=== PATIENT | male | born 1940 | race Caucasian/White ===

== ENCOUNTER → 2023-07-22 12:58 | Outpatient (REF) | payer MEDICARE, OTHER, SELFPAY | LOC: DHVS 12:58 | PROVIDERS: ATTENDING PHYSICIAN Internal Medicine Cardiovascular Disease; FAMILY PHYSICIAN Nurse Practitioner Primary Care | DX: I73.9 Peripheral vascular disease, unspecified (principal) | CPT/HCPCS: 93922 ==

== ENCOUNTER 2023-08-01 19:42 | Inpatient (IN) | payer MEDICARE, OTHER, SELFPAY ==
[2023-08-01 15:29] VITALS: BMI 28.6
[2023-08-01 15:35] VITALS: BP 174/68
--- NOTE | 2023-08-01 15:37 | ED.GENMED ---
History of Present Illness
General
Chief Complaint: Breathing Problem
Time Seen by Provider: 08/01/23 15:42
Travel History
Have you had any contact with someone who has COVID-19?: No
Do you have any symptoms of coronavirus? Fever > 100 degrees, chills, cough, shortness of breath, sore throat, loss of taste or smell, muscle aches, or headache?: No
Past History
Past History
ED Past Medical History: CAD, HTN and Other (BPH)
ED Past Surgical History: Cardiac
Social History
Tobacco: Former smoker
Alcohol: Occasional
Drug: None
Personal:
Living: with family
Employment: Retired
Family History
Family History: Other (Hypertension mother, father CAD)
Course
Orders/Labs/Results
Orders:
Orders
08/01/23 15:35
Electrocardiogram (*1) Urgent
Reason for Study: Other
Other Reason for Exam: Respiratory Distress
Cardiac Monitoring- Treatment ONCE
EKG- Treatment ONCE
IV Insert/Care/Rem.- Treatment PRN
CR Chest - 2 Views Urgent
Comment:
Reason For Exam: respiratory distress
O2 Therapy [RESP] Urgent
Titrate/Wean O2 to maintain O2 sat greater than (%): 93
Special Instructions: TO MAINTAIN CONTINUOUS O2 SATS >/= 93%
Pulse Ox/cont/shift [RESP] Urgent
Quantity: 1
Special Instructions: continuous pulse ox
08/01/23 15:37
Complete Blood Count/With Diff Urgent
Comprehensive Metabolic Panel Urgent
08/01/23 15:57
Electrocardiogram (*1) Urgent
Reason for Study: Shortness of Breath
EKG- Treatment ONCE
COVID-19 Antigen Urgent
Source: Nasal Swab
08/01/23 15:58
Influenza A+B Rapid Molecular Urgent
QUIQUE Source: Nasal Swab
Specimen Description:
Ipratropium/Albuterol Sulfate [Duoneb] 3 ml INH R NOW STA
MethylPREDNISolone PF [Solu-Medrol Pf] 125 mg IV NOW STA
Abnormal Lab Results
08/01/23
15:37
RBC 3.47 L 10^6/uL
(4.70-6.10)
Hgb 8.9 L g/dL
(13.0-18.0)
Hct 27.3 L %
(39.0-52.0)
MCV 78.7 L fL
(80.0-94.0)
MCH 25.6 L pg
(27.0-31.0)
MCHC 32.6 L g/dL
(33.0-37.0)
RDW 16.2 H %
(11.5-14.5)
Plt Count 119 L 10^3/uL
(130-400)
Absolute Lymphs (auto) 0.9 L 10^3/uL
(1.2-3.4)
Lymphocytes % 13.6 L %
(20.5-51.1)
Sodium 133 L mmol/L
(135-145)
BUN 27 H mg/dl
(9-20)
Creatinine 2.3 H mg/dL
(0.7-1.3)
Glucose 195 H mg/dl
(70-99)
08/01/23 15:37
08/01/23 15:37
Vital Signs
Initial and Last Documented VS:
Initial Vital Signs
Temp Pulse Resp Pulse Ox
98.5 F 101 20 94
08/01/23 15:29 08/01/23 15:29 08/01/23 15:29 08/01/23 15:29
Last Documented Vital Signs
Temp Pulse Resp BP Pulse Ox
98.5 F 101 20 174/68 94
08/01/23 15:29 08/01/23 15:29 08/01/23 15:29 08/01/23 15:35 08/01/23 15:29
ED Attending Note
-
Portions of this chart may have been created with voice recognition software.� Occasional wrong word or��sound alike� substitutions may have occurred due to the inherent limitations of voice recognition software.
Discharge Plan
Departure
Prescriptions:
No Action
aspirin 81 MG tablet,delayed release (DR/EC)
81 mg PO DAILY
tamsulosin 0.4 MG capsule
0.4 mg PO HS
bupropion HCl 300 MG tablet extended release 24 hr
300 mg PO DAILY
alprazolam 0.5 MG tablet
0.5 mg PO TIDPRN PRN (Reason: anxiety/sleep)
metoprolol succinate 50 MG tablet extended release 24 hr
50 mg PO DAILY
simvastatin 40 MG tablet
80 mg PO DAILY
albuterol sulfate 1 PUFF HFA aerosol inhaler
2 puff inhalation R Q4HPRN PRN (Reason: sob)
finasteride 5 MG tablet
5 mg PO HS
fluticasone propionate [Flovent HFA] 1 PUFF HFA aerosol inhaler
2 puff inhalation BID
bimatoprost [Lumigan] 1 DROP drops
1 drp RIGHT EYE HS
guaifenesin [Mucus Relief ER] 600 MG tablet extended release 12hr
600 mg PO Q12H
glycopyrrolate-formoterol [Bevespi Aerosphere] 10.7 GM HFA aerosol inhaler
2 puff inhalation BID
Patient Comments:
hydralazine 10 MG tablet
20 mg PO BID Qty: 0
omeprazole 40 MG capsule,delayed release(DR/EC)
40 mg PO DAILY
Referrals:
NONE,* [Family Provider] -
Interventions
Interventions:
*Risk Screen - Suicide Last Done: 08/01/23 15:29
*General Assessment Last Done: 08/01/23 15:29
*Neglect/Abuse Screening Last Done: 08/01/23 15:29
*ED COVID-19 Vaccine History Last Done: 08/01/23 15:29
[2023-08-01 15:51] LABS: % Basophils 0.3 % (0-2); % Eosinophils 1.5 % (0-6); % Immature Granulocytes 0.5 % (0-0.5); % Lymphocytes 13.6 % (20.5-51.1); % Monocytes 9.2 % (1.7-9.3); % Neutrophils 74.9 % (42.2-75.2); Absolute Eosinophils 0.1 10^3/uL (0-0.7); Absolute Lymphocytes 0.9 10^3/uL (1.2-3.4); Absolute Monocytes 0.6 10^3/uL (0.1-0.6); Absolute Neutrophils 4.9 10^3/uL (1.4-6.5); Hematocrit 27.3 % (39.0-52.0); Hemoglobin 8.9 g/dL (13.0-18.0); Mean Corp Hgb Conc. 32.6 g/dL (33.0-37.0); Mean Corpuscular Hgb 25.6 pg (27.0-31.0); Mean Corpuscular Volume 78.7 fL (80.0-94.0); Mean Platelet Volume 10.4 fL (7.4-10.4); Nucleated Red Blood Cells % 0 % (-); Platelet Count 119 10^3/uL (130-400); Red Blood Cell Count 3.47 10^6/uL (4.70-6.10); Red Cell Dist. Width 16.2 % (11.5-14.5); White Blood Cell Count 6.5 10^3/uL (4.8-10.8)
[2023-08-01] MEDS: DUONEB 3 ML INH ×2 (16:07→21:01)
[2023-08-01] MEDS: SOLU-MEDROL PF 125 MG IV (16:07)
[2023-08-01 16:12] LABS: ALT (SGPT) 20 U/L (0-50); AST (SGOT) 23 U/L (17-59); Albumin 3.7 g/dl (3.5-5.0); Alkaline Phosphatase 92 U/L (38-126); Blood Urea Nitrogen 27 mg/dl (9-20); Carbon Dioxide 26 mmol/L (22-30); Chloride 99 mmol/L (98-107); Estimated Creatinine Clearance 21 ml/min; Glucose 195 mg/dl (70-99); Potassium 4.3 mmol/L (3.5-5.1); Sodium 133 mmol/L (135-145); Total Bilirubin 0.8 mg/dl (0.2-1.3); Total Protein 6.7 g/dl (6.3-8.2); eGFR 27.32
--- NOTE | 2023-08-01 16:23 | ED.GENMED ---
History of Present Illness
General
Chief Complaint: Breathing Problem
Source: patient and spouse
Exam Limitations: none
Time Seen by Provider: 08/01/23 15:42
Nursing documentation reviewed up to this point in time: agreed with
Travel History
Have you had any contact with someone who has COVID-19?: No
Do you have any symptoms of coronavirus? Fever > 100 degrees, chills, cough, shortness of breath, sore throat, loss of taste or smell, muscle aches, or headache?: No
History of Present Illness
History of Present Illness:
83-year-old male with past medical history of COPD, PE, CAD status post CABG, hypertension, hyperlipidemia who presents to the emergency room with his and daughter for evaluation of shortness of breath. Patient reports onset of symptoms a week
ago and have been gradually worsening since that time. He reports that over the past 2 to 3 days he has noticed increasing tightness in his chest as well. He says he has had a hacking cough at first productive of brown sputum has progressed to
yellowish-white sputum he says. He says that he has been using his albuterol much more frequently and has not gotten as much relief as usual from his inhaler. Finally came in to be assessed. He did receive a DuoNeb from EMS with some improvement.
He denies any fevers or chills. He has not had any swelling or pain in his legs. Denies any GI issues. Denies any other complaints today.
Past History
Past History
ED Past Medical History: CAD, HTN and Other (BPH)
ED Past Surgical History: Cardiac
Social History
Tobacco: Former smoker
Alcohol: Occasional
Drug: None
Personal:
Living: with family
Employment: Retired
Family History
Family History: Other (Hypertension mother, father CAD)
Review of Systems
Review of Systems
All Other Systems: ROS reviewed and negative except as documented in HPI and ROS
Constitutional: Denies fever or chills
EENT: Denies sore throat or runny nose
Respiratory: Reports cough and trouble breathing; Denies hemoptysis
Cardiac: Reports chest pain (Tightness); Denies palpitations
ABD/GI: Denies abdominal pain, nausea, vomiting or diarrhea
: Denies flank pain
Musculoskeletal: Denies edema, neck pain or back pain
Neurological: Denies headache, weakness or numbness
Phy Exam
Physical Exam
Physical Exam:
General: Awake, alert, oriented x3; no acute distress
Head: Normocephalic, atraumatic
Eyes: Conjunctiva normal, pupils equal round reactive to light bilateral
Throat: Airway intact, handling secretions
Neck: Trachea midline, supple without meningismus
Lungs: Patient has diminished air movement/prolonged expiration throughout all lung alaniz; he has scattered wheezing most pronounced at the left lung base; he has a pulse ox of 94% on room air with a respiratory rate of 18-20
Heart: Regular rate and rhythm, no murmurs, gallops, or rubs appreciated
Abd: Soft, non distended, nontender
Neuro: Cranial nerves grossly intact, speech fluid
Skin: no rash
Extremities: No edema in extremities, equal pulses in all extremities
Scores
Heart Failure Risk
Heart Failure Risk Score: Not Applicable
Heart Score for Chest Pain Patients
STEMI patient?: Not applicable
Withdrawal Assessment of Alcohol
Withdrawal Assessment Completed?: Not applicable
Course
Orders/Labs/Results
Orders:
Orders
08/01/23 15:35
Electrocardiogram (*1) Urgent
Reason for Study: Other
Other Reason for Exam: Respiratory Distress
Cardiac Monitoring- Treatment ONCE
EKG- Treatment ONCE
IV Insert/Care/Rem.- Treatment PRN
CR Chest - 2 Views Urgent
Comment:
Reason For Exam: respiratory distress
O2 Therapy [RESP] Urgent
Titrate/Wean O2 to maintain O2 sat greater than (%): 93
Special Instructions: TO MAINTAIN CONTINUOUS O2 SATS >/= 93%
Pulse Ox/cont/shift [RESP] Urgent
Quantity: 1
Special Instructions: continuous pulse ox
08/01/23 15:37
Complete Blood Count/With Diff Urgent
Comprehensive Metabolic Panel Urgent
08/01/23 15:57
Electrocardiogram (*1) Urgent
Reason for Study: Shortness of Breath
EKG- Treatment ONCE
08/01/23 15:58
Ipratropium/Albuterol Sulfate [Duoneb] 3 ml INH R NOW STA
MethylPREDNISolone PF [Solu-Medrol Pf] 125 mg IV NOW STA
08/01/23 17:17
COVID-19 Antigen Urgent
Source: Nasal Swab
Influenza A+B Rapid Molecular Urgent
QUIQUE Source: Nasal Swab
Specimen Description:
08/01/23 18:10
Azithromycin [Zithromax] 500 mg PO NOW STA
Abnormal Lab Results
08/01/23
15:37
RBC 3.47 L 10^6/uL
(4.70-6.10)
Hgb 8.9 L g/dL
(13.0-18.0)
Hct 27.3 L %
(39.0-52.0)
MCV 78.7 L fL
(80.0-94.0)
MCH 25.6 L pg
(27.0-31.0)
MCHC 32.6 L g/dL
(33.0-37.0)
RDW 16.2 H %
(11.5-14.5)
Plt Count 119 L 10^3/uL
(130-400)
Absolute Lymphs (auto) 0.9 L 10^3/uL
(1.2-3.4)
Lymphocytes % 13.6 L %
(20.5-51.1)
Sodium 133 L mmol/L
(135-145)
BUN 27 H mg/dl
(9-20)
Creatinine 2.3 H mg/dL
(0.7-1.3)
Glucose 195 H mg/dl
(70-99)
08/01/23 15:37
08/01/23 15:37
Vital Signs
Initial and Last Documented VS:
Initial Vital Signs
Temp Pulse Resp Pulse Ox
36.9 C 101 20 94
08/01/23 15:29 08/01/23 15:29 08/01/23 15:29 08/01/23 15:29
Last Documented Vital Signs
Temp Pulse Resp BP Pulse Ox
36.9 C 101 20 174/68 94
08/01/23 15:29 08/01/23 15:29 08/01/23 15:29 08/01/23 15:35 08/01/23 15:29
MDM/Problems Addressed
Differential Diagnosis Includes:
COPD exacerbation, pneumonia, PE, anemia
MDM/Problems Addressed:
83-year-old male presents for evaluation of gradually worsening dyspnea productive cough and increasing chest tightness over the past week. Has had increased frequency and decreased response of albuterol over that period of time. Hypertensive,
tachycardic but afebrile with appropriate pulse ox and acceptable respiratory rate. He is not in respiratory distress. His physical exam is as documented. Plan to place an IV will check labs including CBC and CMP will check a chest x-ray and EKG.
Will send viral swabs. Will treat with a DuoNeb and IV steroid as he does have wheezing and prolonged expiration consistent with COPD exacerbation likely at least contributing to his symptoms if not primary cause. Monitor closely reassess after
the above.
Labs reviewed: CBC shows anemia at 8.9 new since 1�patient denies any GI bleeding. CMP shows creatinine of 2.3 which is baseline. Hyperglycemia is 195. COVID and flu negative. Chest x-ray shows questionable atelectasis versus pneumonia�no
leukocytosis no fever somewhat lower suspicion for pneumonia. His exam is more consistent with acute COPD exacerbation. He is feeling some subjective improvement after DuoNeb and steroid here but still has significant bilateral wheezing although
somewhat improved air movement. Will plan to admit for continued treatment of acute COPD exacerbation. Will cover with some IV azithromycin for COPD flare. Will need to follow hemoglobin. Discussed with hospitalist for admission.
Chronic conditions affecting care:
COPD
Acute Exacerbation and/or Progression of Chronic Illness:
Acute COPD exacerbation managed with steroid and DuoNeb
Acute Exacerbation and/or Progression of Chronic Illness: COPD
*Radiology
Radiology exam reviewed: preliminary read by ED provider and radiology read reviewed
*Pulse Oximetry
Patient hypoxic: no
*EKG
Interpreted by ED Provider?: Yes
Heart Rate: 98
Rate: normal
Rhythm: sinus
[place]: normal axis
Interval: normal interval
QRS Pattern: left bundle branch block
Ischemia: no ischemia
*Critical Care Note
Total Time (30-74mins, 75-104mins- exclusive of procedures): Not Applicable
Data Reviewed
Review of Other/Old Records Reveals: Labs and Records
Source: patient, records, spouse and family
ED Attending Note
-
Portions of this chart may have been created with voice recognition software.� Occasional wrong word or��sound alike� substitutions may have occurred due to the inherent limitations of voice recognition software.
Discharge Plan
Departure
Patient Disposition: Admit
Date of Disposition: 08/01/23
Time of Disposition: 18:12
Admit to doctor: Joselito
Presentation/result/management discussed w/ accepting MD/DO: Hospitalist
Discharge Problem:
COPD with acute exacerbation, Anemia
Prescriptions:
No Action
aspirin 81 MG tablet,delayed release (DR/EC)
81 mg PO DAILY
tamsulosin 0.4 MG capsule
0.4 mg PO HS
bupropion HCl 300 MG tablet extended release 24 hr
300 mg PO DAILY
alprazolam 0.5 MG tablet
0.5 mg PO TIDPRN PRN (Reason: anxiety/sleep)
metoprolol succinate 50 MG tablet extended release 24 hr
50 mg PO DAILY
simvastatin 40 MG tablet
80 mg PO DAILY
albuterol sulfate 1 PUFF HFA aerosol inhaler
2 puff inhalation R Q4HPRN PRN (Reason: sob)
finasteride 5 MG tablet
5 mg PO HS
fluticasone propionate [Flovent HFA] 1 PUFF HFA aerosol inhaler
2 puff inhalation BID
bimatoprost [Lumigan] 1 DROP drops
1 drp RIGHT EYE HS
guaifenesin [Mucus Relief ER] 600 MG tablet extended release 12hr
600 mg PO Q12H
glycopyrrolate-formoterol [Bevespi Aerosphere] 10.7 GM HFA aerosol inhaler
2 puff inhalation BID
Patient Comments:
hydralazine 10 MG tablet
20 mg PO BID Qty: 0
omeprazole 40 MG capsule,delayed release(DR/EC)
40 mg PO DAILY
Referrals:
NONE,* [Active] -
Interventions
Interventions:
*Risk Screen - Suicide Last Done: 08/01/23 15:29
*General Assessment Last Done: 08/01/23 15:29
*Neglect/Abuse Screening Last Done: 08/01/23 15:29
ED- Fall Risk Assessment Last Done: 08/01/23 15:35
*ED COVID-19 Vaccine History Last Done: 08/01/23 15:29
ED- Cardiac Assessment Last Done: 08/01/23 15:35
ED- Pulmonary Assessment Last Done: 08/01/23 15:35
[2023-08-01 17:51] LABS: COVID-19 Antigen Negative (Negative)
[2023-08-01] MEDS: ZITHROMAX 500 MG PO (18:34)
--- NOTE | 2023-08-01 19:31 | HPS.HSE ---
Family Physician
-
Family Physician: Whitney Mejia
Chief Complaint
-
SOB/Cough/wheezing x 1-2 weeks
History of Present Illness
83yo M with PMH CAD s/p CABGx5 (2005), LBBB, HTN/HLD, COPD (not on oxygen), Hx Right Lung Cancerous Nodules s/p radiation, DM2, CKD IV, BPH, Prostate Ca s/p TURP presents to ER with SOB/Wheezing/Cough x 2 weeks. Initially with brown sputum now with
yellow sputum. +insomnia. Denies fever, chills, diaphoresis. Pt states he followed with his PCP/[facility] who started him on cough medication and possible an antibiotic (unsure). Denies dizziness/LH, CP, Palps, abd pain, n/v/d/c, dysuria, calf or
leg pain/swelling. Endorses compliance with medications. Denies bloody or black stools.
ER course: Pt presents HR 101->68, T 98.5, RR 16-20, Sat 94-97%RA. WBC 8.9K, Hgb 8.5 g/dL (Baseline ~13 in 2020, MCV 79), PLT 119K. Na 133. BUN/Cr 27/2.3. CXR Mild bibasilar opacities may represent atelectasis or pneumonia. COVID/Flu (-). S/P 125mg
IV solumedrol, Duonebx1, Azithromycin 500mg IV in ER.
Pulm: Dr. Tavares
Medical History
Past Medical History
Past Medical History: Reports Other (CAD, LBBB, HTN/HLD, COPD (not on oxygen), Hx Right Lung Cancerous Nodules s/p radiation, CKD IV, BPH, Prostate Ca)
Past Surgical History: Reports Other (CABGx5 (2005), TURP)
Social History
Tobacco: Former Smoker
Alcohol: None
Drug: None
Personal:
Living: With Family
Family History
Family History: Other (Father with CAD/HI x5 ( age 84); Mother with CAD)
Allergies / Home Medications
Allergies reflects when Allergies were last updated in [facility].
Home Medications with original date entered in [facility]
Allergy/Medication List:
Allergies
Allergy/AdvReac Type Severity Reaction Status Date / Time
Penicillins Allergy Itching/swollen Verified 12/07/20 15:01
testicles
Home Medications
aspirin 81 mg tablet,delayed release 81 mg PO DAILY 07/18/15
tamsulosin 0.4 mg capsule 0.4 mg PO DAILY 07/18/15
albuterol sulfate 90 mcg/actuation aerosol inhaler 2 puff inhalation R Q4HPRN PRN sob 02/06/18
finasteride 5 mg tablet 5 mg PO DAILY 02/06/18
glycopyrrolate 9 mcg-formoterol 4.8 mcg HFA aerosol inhaler (Bevespi Aerosphere) 2 puff inhalation R DAILY 02/06/18
metoprolol succinate 50 mg tablet,extended release 24 hr 50 mg PO DAILY 02/06/18
hydralazine 10 mg tablet 30 mg PO BID ##0 07/30/18
omeprazole 40 mg capsule,delayed release 40 mg PO DAILY 08/24/18
dapagliflozin propanediol 10 mg tablet (Farxiga) 10 mg PO DAILY 08/01/23
escitalopram oxalate 10 mg tablet (Lexapro) 10 mg PO DAILY 08/01/23
ferrous sulfate 325 mg (65 mg iron) tablet 325 mg PO DAILY 08/01/23
fluticasone propionate 110 mcg/actuation HFA aerosol inhaler 1 puff inhalation R DAILY 08/01/23
glimepiride 1 mg tablet 1 mg PO DAILY 08/01/23
Review of Systems
-
A 12 point ROS was completed and negative except as noted: Yes
Physical Exam
Vital Signs
Vital Signs
Temp Pulse Resp BP Pulse Ox
98.5 F 101 20 174/68 94
08/01/23 15:29 08/01/23 15:29 08/01/23 15:29 08/01/23 15:35 08/01/23 15:29
Physical Exam
General: Well Developed, Well Nourished and No Apparent Distress
HEENT: NormoCephalic, Moist mucous membranes and Atraumatic
Respiratory: Wheezes and Other (Diminished breath sounds b/l. No accessory muscle use. )
Cardiac: S1/S2, Regular Rhythm and Other (Midline sternotomy incision well approximated); No Murmur or Rub
GI: Soft, Non Tender, Non Distended and Normal Bowel Sounds; No Organomegaly
Rectal: Deferred by Provider
Genito-urinary: No costovertebral tender; No [place]
Musculoskeletal: No Clubbing, No Cyanosis and No Edema
Skin: Warm and Dry; No Rash
Neuro: Awake, Alert, AO x 3 and Nonfocal/grossly intact
Hematologic/Lymphatic: No Lymphadenopathy
Psych: Calm
Laboratory Results
-
08/01/23 15:37
08/01/23 15:37
Laboratory Results
Total Bilirubin 0.8 mg/dl (0.2-1.3) 08/01/23 15:37
AST 23 U/L (17-59) 08/01/23 15:37
ALT 20 U/L (0-50) 08/01/23 15:37
Alkaline Phosphatase 92 U/L (38-126) 08/01/23 15:37
Data Reviewed
-
Diagnostic Radiology: Image Personally Visualized and interpreted
Lab Data: Labs Reviewed by me
Old Records: Reviewed
Impression/Plan
-
Dyspnea 2/2 Suspected COPD Exacerbation
- CXR: Mild bibasilar opacities may represent atelectasis or pneumonia.
- Afebrile. No leukocytosis.
- Lower suspicion for PNA at this time. Check procal for completeness and Continue azithromycin started in ER for antiflammatory effect/possible bronchitis
- COVID/Influenza (-)
- Continue solumedrol 40mg IV Q8h, wean as tolerated
- No oxygen requirements on admission. Continue nebs, mucolytics, IS
- Consult Pulm
Microcytic Anemia / Hx MERARI
- Hgb 8.5 g/dL (MCV 79). Below prior 2020 ~13 g/dL, though suspect this to be related to AOCD +/- recent lung cancer treatment
- Check Iron studies and Coags. Obtain stool occult for completeness.
- Cont home iron supplement
Thrombocytopenia
- PLT 119K. Follow trends for stability. Consider h/o consult.
Hyponatremia
- Na 133 on admission. Largely wnl correcting for glucose. Repeat in AM
CKD IV
- BUN/Cr 27/2.3. Appears at or near baseline. Continue follow up with Dr. Shirley
Hx Right Lung Nodules
- Pt describes recent diagnosis of right sided cancerous nodules s/p radiation. Denies chemo
- Appreciate pulm input. PKT Dr. Tavares
- Reports recently establishing care with h/o, cannot recall name
Hx Prostate Ca / BPH
- S/P TURP
- Continue flomax/finasteride
Chronic LBBB / CAD s/p CABG / HTN / HLD
- Reviewed recent echo and stress tests 02/2023
- Continue aspirin, hydralazine, metoprolol,
- Not currently on statin therapy.
DM2
- BG 195 on admission
- Continue home glimperide/Farxiga. SSI/accuchecks. Diabetic Diet.
Diet - Diabetic
Code Status - Full Code
PPx - SCDs, Trend H&H
[2023-08-01 19:54] LABS: Iron 56 ug/dl (49-181)
[2023-08-01 20:03] LABS: Percent Saturation 14 % (20-50); Total Iron Binding Capacity 387 ug/dl (261-462)
[2023-08-01 20:15] VITALS: BP 154/75; BMI 28.5
--- NOTE | 2023-08-01 20:20 | PTCARENOTE ---
Patient arrived to 339-1 from ED via stretcher -- awake, alert and oriented, ambulated to bed with standby assistance without difficulty. Patient appears to be labored with breathing during activity, +RAPP, otherwise no other complaints per patient,
maintained on room air at this time. Patient appears to be forgetful at times. Initiated on critical care paramedic #6 -- SR with BBBC on the monitor. Call elaine placed in bed with patient, will ring for assistance if needed. Will monitor.
[2023-08-01 20:29] LABS: Ferritin 33.2 ng/ml (17.9-464.0)
[2023-08-01] MEDS: MUCINEX 600 MG PO (21:25)
[2023-08-01] MEDS: APRESOLINE 30 MG PO (21:25)
[2023-08-01] MEDS: SOLU-MEDROL PF 40 MG IV (21:26)
[2023-08-01] MEDS: FLUSH (NSS) 1 FLUSH IV (21:27)
[2023-08-01 21:40] LABS: Glucose - Point of Care 436 mg/dl (70-99)
[2023-08-01 22:09] LABS: Glucose 412 mg/dl (70-99)
[2023-08-01] MEDS: NOVOLOG FLEXPEN 8 UNITS SC (22:44)
[2023-08-01 23:30] VITALS: BP 104/65
[2023-08-02 00:51] LABS: Glucose - Point of Care 416 mg/dl (70-99)
[2023-08-02 01:43] LABS: Glucose 376 mg/dl (70-99)
[2023-08-02] MEDS: NOVOLOG FLEXPEN 10 UNITS SC (01:59)
[2023-08-02 03:50] VITALS: BP 96/65
[2023-08-02 04:42] LABS: Glucose - Point of Care 306 mg/dl (70-99)
[2023-08-02 06:00] VITALS: BMI 28.5
[2023-08-02] MEDS: SOLU-MEDROL PF 40 MG IV (06:10)
[2023-08-02 07:00] VITALS: BP 141/70
[2023-08-02 07:10] LABS: INR 1.33; PT 16.3 Sec (11.4-14.6)
[2023-08-02 07:11] LABS: % Basophils 0.2 % (0-2); % Immature Granulocytes 0.5 % (0-0.5); % Lymphocytes 8.7 % (20.5-51.1); % Monocytes 1.9 % (1.7-9.3); % Neutrophils 88.7 % (42.2-75.2); APTT 44.8 Sec (23.4-35.0); Absolute Lymphocytes 0.4 10^3/uL (1.2-3.4); Absolute Monocytes 0.1 10^3/uL (0.1-0.6); Absolute Neutrophils 3.8 10^3/uL (1.4-6.5); Hematocrit 23.8 % (39.0-52.0); Hemoglobin 7.8 g/dL (13.0-18.0); Mean Corp Hgb Conc. 32.8 g/dL (33.0-37.0); Mean Corpuscular Hgb 26.1 pg (27.0-31.0); Mean Corpuscular Volume 79.6 fL (80.0-94.0); Mean Platelet Volume 10.2 fL (7.4-10.4); Nucleated Red Blood Cells % 0 % (-); Platelet Count 116 10^3/uL (130-400); Red Blood Cell Count 2.99 10^6/uL (4.70-6.10); Red Cell Dist. Width 15.6 % (11.5-14.5); White Blood Cell Count 4.3 10^3/uL (4.8-10.8)
[2023-08-02 07:31] LABS: Blood Urea Nitrogen 41 mg/dl (9-20); Calcium 9.3 mg/dl (8.4-10.2); Carbon Dioxide 22 mmol/L (22-30); Chloride 99 mmol/L (98-107); Estimated Creatinine Clearance 20 ml/min; Glucose 233 mg/dl (70-99); Iron 48 ug/dl (49-181); Potassium 4.8 mmol/L (3.5-5.1); Sodium 137 mmol/L (135-145); eGFR 25.96
[2023-08-02 07:40] LABS: Percent Saturation 13 % (20-50); Total Iron Binding Capacity 356 ug/dl (261-462)
[2023-08-02] MEDS: DUONEB 3 ML INH (07:58)
[2023-08-02] MEDS: STRIVERDI RESPIMAT 2 PUFF INH (08:01)
[2023-08-02] MEDS: SPIRIVA RESPIMAT 2.5 MCG 2 PUFF INH (08:01)
[2023-08-02 08:06] LABS: Ferritin 42.1 ng/ml (17.9-464.0)
[2023-08-02 08:13] LABS: Glucose - Point of Care 233 mg/dl (70-99)
--- NOTE | 2023-08-02 08:37 | W.PN.HOSP.TC ---
Today's Communication/Plan
-
d/c
Assessment / Plan
Assessment / Plan
Gen: NAD, AAOx3.
Eyes: EOMI, no scleral icterus.
Neck: supple.
CV: RRR, +S1/S2, no m/r/g.
Resp: CTAB, no rales, wheezes, or rhonchi.
Abd: +BS, soft, NT, ND
Skin: No rashes.
Neuro: CN 2-12 intact, non-focal, tremulous
Psych: Normal mood and affect.
Dyspnea Likely due to mild acute COPD Exacerbation:
- CXR: Mild bibasilar opacities may represent atelectasis or pneumonia.
- Afebrile. No leukocytosis. Bacterial pneumonia has been ruled out with a negative procalcitonin. Okay to continue azithromycin started in ER for antiinflammatory effect/possible bronchitis
- COVID/Influenza (-)
- stop Solumedrol, transition to Prednisone 40mg daily x 5 days
- No oxygen requirements on admission. Continue nebs, mucolytics, IS
Microcytic Anemia / Hx MERARI
- Hgb 8.5 g/dL (MCV 79). Below prior 2020 ~13 g/dL, though suspect this to be related to AOCD +/- recent lung cancer treatment
-Iron studies show a component of iron deficiency. Will give a dose of IV iron.
Other problems:
Thrombocytopenia, mild trend
Hyponatremia, resolved
CKD4
h/o Right Lung Nodules: recent diagnosis of right sided cancerous nodules s/p radiation. Denies chemo.
h/o prostate CA, BPH s/p TURP: Continue flomax/finasteride
Essential HTN: Continue hydralazine/BB
Chronic LBBB / CAD s/p CABG / HLD: cont ASA/BB, start statin
DM2: Continue home glimperide/Farxiga. SSI/accuchecks. Diabetic Diet.
FULL/SCDs
Medically stable for d/c, case management aware.
Unexpected rapid recovery.
Total time spent on d/c = 31 min. This included today's physical exam, progress note, review of laboratory and diagnostic data, preparation of discharge documents and prescriptions, and discussions about the pt's hospital course and discharge plan
with the patient and other medical massage therapist involved in the patient's care.
Anticipated Discharge: Today
Subjective/Interval History
-
Date of Service: August 02, 2023
Denies SOB.
Objective Data
-
Labs:
Laboratory Results
08/01/23 08/02/23 08/02/23
21:50 01:02 06:36
WBC 4.3 L
Hgb 7.8 L
Hct 23.8 L
Plt Count 116 L
PT 16.3 H
INR 1.33
APTT 44.8 H
Sodium 137
Potassium 4.8
Chloride 99
Carbon Dioxide 22
BUN 41 H
Creatinine 2.4 H
Glucose 412 H 376 H 233 H
Calcium 9.3
Vital Signs:
Vital Signs
Temp Pulse Resp BP Pulse Ox
98.2 F 77 17 141/70 96
08/02/23 07:00 08/02/23 07:00 08/02/23 07:00 08/02/23 07:00 08/02/23 07:00
I&O
08/01/23 08/02/23 08/03/23
06:59 06:59 06:59
Intake Total 480 / 480
Balance 480 / 480
[2023-08-02] MEDS: APRESOLINE 30 MG PO (08:51)
[2023-08-02] MEDS: MUCINEX 600 MG PO (08:51)
[2023-08-02] MEDS: PROSCAR 5 MG PO (08:51)
[2023-08-02] MEDS: FARXIGA 10 MG PO (08:51)
[2023-08-02] MEDS: AMARYL 1 MG PO (08:51)
[2023-08-02] MEDS: PROTONIX 40 MG PO (08:51)
[2023-08-02] MEDS: TOPROL XL 50 MG PO (08:51)
[2023-08-02] MEDS: FLOMAX 0.400000000000000022 MG PO (08:51)
[2023-08-02] MEDS: FEOSOL 325 MG PO (08:51)
[2023-08-02] MEDS: LEXAPRO 10 MG PO (08:51)
[2023-08-02] MEDS: ASPIR LOW (ENTERIC COATED) 81 MG PO (08:51)
[2023-08-02] MEDS: NOVOLOG FLEXPEN-LOW RESISTANCE 2 UNITS SC (08:53)
[2023-08-02] MEDS: FERRLECIT 110 MG IV (09:17)
--- NOTE | 2023-08-02 11:50 | CM ---
Addendum entered by Evette Burch RN 08/02/23 12:06:
Informed by nurse that patient left before seen by PT- nurse says he was impatient wanting to go home.
Original Note:
Patient with Dx COPD Exacerbation, anemia. PT Eval pending.
Met with patient, daughter Ayaka and .
The patient resides with his and 2 daughters in a 1 story house with 1 + 1 DENY.
The patient has been independent in ADLs and ambulation.
His only DME is a nebulizer.
No prior VN or SNF.
PCP - Whitney Mejia
Pharmacy - [facility]
The patient and have 13 children between their 2 families.
Patient wants to go home today with VN and chooses [facility].
Plan home with [facility].
--- NOTE | 2023-08-02 13:14 | W.DCSUMMARY ---
Discharge Summary
Discharge Data
Date of Admission: 08/01/23
Date of Discharge: 08/02/23
-
Pending Results: No
Hospital Course
Primary diagnoses:
Dyspnea likely due to mild acute chronic obstructive pulmonary disease exacerbation
Microcytic anemia, history of iron deficiency anemia
Secondary diagnoses:
Thrombocytopenia
Hyponatremia
Chronic kidney disease stage 4
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
h/o prostate cancer
Benign prostatic hypertrophy s/p transurethral radical prostatectomy
Essential hypertension
Chronic left bundle branch block
Coronary artery disease s/p coronary bypass grafting
Hyperlipidemia
Type 2 diabetes mellitus
Consultants:
None
Imaging:
CXR: Mild bibasilar opacities may represent atelectasis or pneumonia.
Hospital course: 83-year-old male who presented yesterday with chief complaints of shortness of breath, cough, and wheezing x 1 to 2 weeks as outlined in the H&P done on admission. The patient was afebrile and had no leukocytosis. Chest x-ray
above and likely represented atelectasis. Procalcitonin was negative and bacterial pneumonia was ruled out. COVID and influenza testing were negative. Patient was given IV Solu-Medrol. On the morning after admission the patient denied shortness
of breath. He had no wheezing on exam. He was saturating well on room air. Patient was discharged in medically stable condition on prednisone 40 mg daily x 5 days as well as a short course of doxycycline. Of note the patient's hemoglobin was 8.5
and this was likely related to anemia of chronic disease. Iron studies showed a component of iron deficiency. He was given a dose of IV iron while hospitalized.
Discharge Plan
-
Patient Disposition: Home with Home Care
Discharge Diagnosis/Procedures: Dyspnea Likely due to mild acute COPD Exacerbation
Condition: Good
Diet: Diabetic, Carb Controlled
Activity: As tolerated
Driving Restrictions: As prior to admission
Bathing Restrictions: None
Referrals:
Whitney Mejia CRNP [Family Provider] - in less than 1 week
Prescriptions:
New
atorvastatin 20 mg Tablet
20 mg PO QPM Qty: 30 0RF
guaifenesin 600 mg Tablet Extended Release 12hr
600 mg PO Q12 Qty: 0 0RF
doxycycline hyclate 100 mg capsule
100 mg PO BID Qty: 10 0RF
prednisone 20 mg tablet
40 mg PO DAILY Qty: 10 0RF
ipratropium-albuterol 0.5 mg-3 mg(2.5 mg base)/3 mL solution for nebulization
3 ml inhalation Q6H PRN (Reason: shortness of breath or wheezing) Qty: 180 0RF
Continued
aspirin 81 MG tablet,delayed release (DR/EC)
81 mg PO DAILY
tamsulosin 0.4 MG capsule
0.4 mg PO DAILY
metoprolol succinate 50 MG tablet extended release 24 hr
50 mg PO DAILY
albuterol sulfate 1 PUFF HFA aerosol inhaler
2 puff inhalation R Q4HPRN PRN (Reason: sob)
finasteride 5 MG tablet
5 mg PO DAILY
Bevespi Aerosphere 10.7 GM HFA aerosol inhaler
2 puff inhalation R DAILY
Patient Comments:
hydralazine 10 MG tablet
30 mg PO BID Qty: 0
omeprazole 40 MG capsule,delayed release(DR/EC)
40 mg PO DAILY
glimepiride 1 mg Tablet
1 mg PO DAILY
ferrous sulfate 325 mg (65 mg iron) Tablet
325 mg PO DAILY
fluticasone propionate 110 mcg/actuation Hfa Aerosol Inhaler
1 puff INHALATION R DAILY
escitalopram oxalate [Lexapro] 10 mg Tablet
10 mg PO DAILY
dapagliflozin propanediol [Farxiga] 10 mg Tablet
10 mg PO DAILY
Discharge Orders:
Discharge Patient (As Directed); Ordered 08/02/23
Ordered By: Rony Velázquez
Discharge Date and Time
Discharge Date/Time: 08/02/23 12:06
== END 2023-08-02 12:06 | disposition home health service (06) | DRG 191 ==
LOC: 3 WEST ACU 19:42
PROVIDERS: ADMITTING PHYSICIAN Internal Medicine; ATTENDING PHYSICIAN Internal Medicine; EMERGENCY PHYSICIAN Emergency Medicine; FAMILY PHYSICIAN Nurse Practitioner Primary Care
DX: J44.1 Chronic obstructive pulmonary disease with (acute) exacerbation (principal); C34.91 Malignant neoplasm of unspecified part of right bronchus or lung; E87.1 Hypo-osmolality and hyponatremia; N18.4 Chronic kidney disease, stage 4 (severe); J98.11 Atelectasis; E78.5 Hyperlipidemia, unspecified; R06.03 Acute respiratory distress; D50.9 Iron deficiency anemia, unspecified; D69.6 Thrombocytopenia, unspecified; I44.7 Left bundle-branch block, unspecified; E11.22 Type 2 diabetes mellitus with diabetic chronic kidney disease; N40.0 Benign prostatic hyperplasia without lower urinary tract symptoms; I12.9 Hypertensive chronic kidney disease with stage 1 through stage 4 chronic kidney disease, or unspecified chronic kidney disease; Z11.52 Encounter for screening for COVID-19; Z95.1 Presence of aortocoronary bypass graft; Z87.891 Personal history of nicotine dependence; Z82.49 Family history of ischemic heart disease and other diseases of the circulatory system; Z79.82 Long term (current) use of aspirin; Z79.51 Long term (current) use of inhaled steroids; Z85.46 Personal history of malignant neoplasm of prostate; Z92.3 Personal history of irradiation; Z90.79 Acquired absence of other genital organ(s); Z88.0 Allergy status to penicillin
CPT/HCPCS: 71046; 80048; 80053; 82728; 82947; 82962; 83540; 83550; 84145; 85025; 85610; 85730; 86850; 86900; 86901; 87502; 87811; 93005; 94640; 94760; 96374; 99285; J2916

== ENCOUNTER → 2023-08-05 14:41 | Outpatient (REF) | payer MEDICARE, OTHER, SELFPAY | LOC: HWRCS 14:41 | PROVIDERS: ATTENDING PHYSICIAN Nurse Practitioner Primary Care | DX: I25.10 Atherosclerotic heart disease of native coronary artery without angina pectoris (principal); R06.02 Shortness of breath; J44.9 Chronic obstructive pulmonary disease, unspecified | CPT/HCPCS: 93306 ==

== ENCOUNTER → 2023-08-14 08:43 | Outpatient (REF) | payer MEDICARE, OTHER, SELFPAY | LOC: RAD 08:43 | PROVIDERS: ATTENDING PHYSICIAN Nurse Practitioner Primary Care | DX: I71.02 Dissection of abdominal aorta (principal) | CPT/HCPCS: 93978 ==

== ENCOUNTER → 2024-02-02 16:08 | Outpatient (REF) | payer MEDICARE, OTHER, SELFPAY ==
[2024-02-02 14:51] LABS: % Basophils 0.3 % (0-2); % Eosinophils 4.5 % (0-6); % Immature Granulocytes 0.5 % (0-0.5); % Lymphocytes 24.8 % (20.5-51.1); % Monocytes 9.5 % (1.7-9.3); % Neutrophils 60.4 % (42.2-75.2); Absolute Eosinophils 0.3 10^3/uL (0-0.7); Absolute Lymphocytes 1.4 10^3/uL (1.2-3.4); Absolute Monocytes 0.6 10^3/uL (0.1-0.6); Absolute Neutrophils 3.5 10^3/uL (1.4-6.5); Hemoglobin 11.4 g/dL (13.0-18.0); Mean Corp Hgb Conc. 34.5 g/dL (33.0-37.0); Mean Corpuscular Hgb 29.7 pg (27.0-31.0); Mean Corpuscular Volume 85.9 fL (80.0-94.0); Mean Platelet Volume 10.9 fL (7.4-10.4); Nucleated Red Blood Cells % 0 % (-); Platelet Count 127 10^3/uL (130-400); Red Blood Cell Count 3.84 10^6/uL (4.70-6.10); Red Cell Dist. Width 14.4 % (11.5-14.5); White Blood Cell Count 5.8 10^3/uL (4.8-10.8)
== END ==
LOC: OIDL 16:08
PROVIDERS: ATTENDING PHYSICIAN Internal Medicine Hematology & Oncology
DX: D50.0 Iron deficiency anemia secondary to blood loss (chronic) (principal)
CPT/HCPCS: 85025

== ENCOUNTER → 2024-03-17 15:18 | Outpatient (REF) | payer MEDICARE, OTHER, SELFPAY ==
[2024-03-17 16:18] LABS: % Basophils 0.4 % (0-2); % Eosinophils 3.8 % (0-6); % Immature Granulocytes 0.8 % (0-0.5); % Lymphocytes 20.8 % (20.5-51.1); % Monocytes 10.3 % (1.7-9.3); % Neutrophils 63.9 % (42.2-75.2); Absolute Eosinophils 0.3 10^3/uL (0-0.7); Absolute Immature Granulocytes 0.1 10^3/uL (0-0.05); Absolute Lymphocytes 1.5 10^3/uL (1.2-3.4); Absolute Monocytes 0.8 10^3/uL (0.1-0.6); Absolute Neutrophils 4.7 10^3/uL (1.4-6.5); Hematocrit 36.2 % (39.0-52.0); Hemoglobin 12.8 g/dL (13.0-18.0); Mean Corp Hgb Conc. 35.4 g/dL (33.0-37.0); Mean Corpuscular Hgb 30.7 pg (27.0-31.0); Mean Corpuscular Volume 86.8 fL (80.0-94.0); Mean Platelet Volume 10.2 fL (7.4-10.4); Nucleated Red Blood Cells % 0 % (-); Platelet Count 139 10^3/uL (130-400); Red Blood Cell Count 4.17 10^6/uL (4.70-6.10); Red Cell Dist. Width 14.3 % (11.5-14.5); White Blood Cell Count 7.3 10^3/uL (4.8-10.8)
[2024-03-17 16:38] LABS: Albumin 4.5 g/dl (3.5-5.0); Blood Urea Nitrogen 47 mg/dl (9-20); Calcium 9.3 mg/dl (8.4-10.2); Carbon Dioxide 21 mmol/L (22-30); Chloride 102 mmol/L (98-107); Glucose 165 mg/dl (70-99); Phosphorus 3.8 mg/dl (2.5-4.5); Potassium 4.5 mmol/L (3.5-5.1); Sodium 138 mmol/L (135-145); eGFR 21.57
[2024-03-17 16:55] LABS: Intact PTH 168.8 pg/ml (13.6-85.8)
== END ==
LOC: REG 15:18
PROVIDERS: ATTENDING PHYSICIAN Specialist; FAMILY PHYSICIAN Nurse Practitioner Primary Care
DX: N18.4 Chronic kidney disease, stage 4 (severe) (principal)
CPT/HCPCS: 36415; 80069; 83970; 85025

== ENCOUNTER → 2024-03-19 13:36 | Outpatient (REF) | payer MEDICARE, OTHER, SELFPAY ==
[2024-03-19 14:19] LABS: Protein/creatinine Ratio 0.7; Urine Protein 56 mg/dl
== END ==
LOC: REG 13:36
PROVIDERS: ATTENDING PHYSICIAN Specialist; FAMILY PHYSICIAN Nurse Practitioner Primary Care
DX: N18.4 Chronic kidney disease, stage 4 (severe) (principal)
CPT/HCPCS: 82570; 84156

== ENCOUNTER → 2024-08-16 09:00 | Outpatient (REF) | payer MEDICARE, OTHER, SELFPAY | LOC: DHVS 09:00 | PROVIDERS: ATTENDING PHYSICIAN Surgery Vascular Surgery; FAMILY PHYSICIAN Nurse Practitioner Primary Care | DX: I73.9 Peripheral vascular disease, unspecified (principal) | CPT/HCPCS: 93922; 93925; 93978 ==

== ENCOUNTER → 2024-10-18 14:05 | Outpatient (REF) | payer MEDICARE, OTHER, SELFPAY ==
[2024-10-18 12:42] LABS: % Basophils 0.3 % (0-2); % Eosinophils 3.5 % (0-6); % Immature Granulocytes 0.3 % (0-0.5); % Lymphocytes 21.1 % (20.5-51.1); % Monocytes 7.2 % (1.7-9.3); % Neutrophils 67.6 % (42.2-75.2); Absolute Eosinophils 0.2 10^3/uL (0-0.7); Absolute Lymphocytes 1.3 10^3/uL (1.2-3.4); Absolute Monocytes 0.5 10^3/uL (0.1-0.6); Absolute Neutrophils 4.3 10^3/uL (1.4-6.5); Hematocrit 35.2 % (39.0-52.0); Hemoglobin 12.1 g/dL (13.0-18.0); Mean Corp Hgb Conc. 34.4 g/dL (33.0-37.0); Mean Corpuscular Hgb 30.2 pg (27.0-31.0); Mean Corpuscular Volume 87.8 fL (80.0-94.0); Mean Platelet Volume 10.4 fL (7.4-10.4); Platelet Count 133 10^3/uL (130-400); Red Blood Cell Count 4.01 10^6/uL (4.70-6.10); Red Cell Dist. Width 13.2 % (11.5-14.5); White Blood Cell Count 6.3 10^3/uL (4.8-10.8)
[2024-10-18 14:42] LABS: Vitamin D, 25-OH*** 82.3 ng/mL (30-80)
== END ==
LOC: OIDL 14:05
PROVIDERS: ATTENDING PHYSICIAN Nurse Practitioner Adult Health
DX: C34.31 Malignant neoplasm of lower lobe, right bronchus or lung (principal); E55.9 Vitamin D deficiency, unspecified
CPT/HCPCS: 82306; 85025

== ENCOUNTER → 2025-04-18 11:14 | Outpatient (REF) | payer MEDICARE, OTHER, SELFPAY | LOC: HWRAD 11:14 | PROVIDERS: ATTENDING PHYSICIAN Radiology Radiation Oncology; FAMILY PHYSICIAN Nurse Practitioner Primary Care | DX: C34.32 Malignant neoplasm of lower lobe, left bronchus or lung (principal); C34.91 Malignant neoplasm of unspecified part of right bronchus or lung | CPT/HCPCS: 71250 ==